=== PATIENT | female | born 1975 | race Two or more races ===

== ENCOUNTER 2018-07-07 21:34 | Emergency (ER) | payer BC ==
[2018-07-07] MEDS ORDERED: ONDANSETRON 4 MG TAB.RAPDIS PO ONE (23:17)
--- NOTE | 2018-07-07 23:18 | ER Document Report ---
ED Medical Screen (RME) - General Chief Complaint: Blood Pressure Problem Stated Complaint: DIZZY,HIGH BLOOD PRESSURE,NAUSEA Time Seen by Provider: 07/07/18 23:17 Mode of Arrival: Ambulatory Information source: Patient Notes: 43-year-old female presented to ED for complaining of dizziness nausea headache and upset stomach that started yesterday. She states this form morning she woke up and she still had a headache dizziness and upset stomach. She states she is still nauseated at this time. Vital signs are stable. Patient is alert and oriented respirations regular and unlabored speaking in full sentences and walking with a even steady gait. I have greeted and performed a rapid initial assessment of this patient. A comprehensive ED assessment and evaluation of the patient, analysis of test results and completion of medical decision making process will be conducted by an additional ED providers. TRAVEL OUTSIDE OF THE [place] IN LAST 30 DAYS: No Physical Exam - Vital signs Vitals: Temp Pulse Resp BP Pulse Ox 98.1 F 91 16 158/96 H 99 07/07/18 21:35 07/07/18 21:35 07/07/18 21:35 07/07/18 21:35 07/07/18 21:35 Course - Vital Signs Vital signs: Temp Pulse Resp BP Pulse Ox 98.1 F 91 16 158/96 H 99 07/07/18 21:35 07/07/18 21:35 07/07/18 21:35 07/07/18 21:35 07/07/18 21:35 Doctor's Discharge - Discharge Referrals: HUNTER BERMUDEZ MD [Primary Care Provider] - Follow up as needed
--- NOTE | 2018-07-07 23:31 | EKG REPORT ---
SEVERITY:- ABNORMAL ECG - SINUS RHYTHM : Confirmed by: Maday Vela MD 07-Jul-2018 23:30:55
[2018-07-08 00:50] LABS: ABSOLUTE LYMPHOCYTES (AUTO) 1.9 10^3/uL (0.5-4.7); ABSOLUTE MONOCYTES (AUTO) 0.3 10^3/uL (0.1-1.4); BASOPHILS % (AUTO) 0.2 % (0-2); EOSINOPHILS % (AUTO) 0.3 % (0-6); HEMATOCRIT 40.8 % (36.0-47.0); HEMOGLOBIN 13.7 g/dL (12.0-15.5); LYMPHOCYTES % (AUTO) 20.5 % (13-45); MEAN CORPUSCULAR HEMOGLOBIN 26.9 pg (27.0-33.4); MEAN CORPUSCULAR HGB CONC 33.6 g/dL (32.0-36.0); MEAN CORPUSCULAR VOLUME 80 fl (80-97); MONOCYTES % (AUTO) 3.2 % (3-13); PLATELET COUNT 343 10^3/uL (150-450); RED BLOOD COUNT 5.09 10^6/uL (3.72-5.28); RED CELL DISTRIBUTION WIDTH 13.3 % (11.5-14.0); SEGMENTED NEUTROPHILS % (AUTO) 75.8 % (42-78); TOTAL CELLS COUNTED % (AUTO) 100 %; WHITE BLOOD COUNT 9.3 10^3/uL (4.0-10.5)
[2018-07-08 00:55] LABS: APPEARANCE,URINE CLEAR; BILIRUBIN,URINE NEGATIVE (NEGATIVE); COLOR,URINE YELLOW; GLUCOSE, URINE NEGATIVE (NEGATIVE); KETONES,URINE NEGATIVE (NEGATIVE); LEUKOCYTE ESTERASE,URINE NEGATIVE (NEGATIVE); NITRITE,URINE NEGATIVE (NEGATIVE); PROTEIN,URINE NEGATIVE (NEGATIVE); URINE SPECIFIC GRAVITY 1.003; UROBILINOGEN,URINE NEGATIVE mg/dL (<2.0)
[2018-07-08 01:22] LABS: ALANINE AMINOTRANSFERASE 48 U/L (9-52); ALBUMIN 4.6 g/dL (3.5-5.0); ALKALINE PHOSPHATASE 105 U/L (38-126); ANION GAP 10 (5-19); ASPARTATE AMINO TRANSFERASE 35 U/L (14-36); BILIRUBIN,DIRECT 0.4 mg/dL (0.0-0.4); BILIRUBIN,TOTAL 0.5 mg/dL (0.2-1.3); BLOOD UREA NITROGEN 9 mg/dL (7-20); CARBON DIOXIDE 28 mmol/L (22-30); CHLORIDE 104 mmol/L (98-107); GLUCOSE 105 mg/dL (75-110); POTASSIUM 3.9 mmol/L (3.6-5.0); SODIUM 142.3 mmol/L (137-145); TOTAL PROTEIN 8.7 g/dL (6.3-8.2)
[2018-07-08] MEDS ORDERED: MECLIZINE HCL 25 MG TABLET PO ONE (02:37)
--- NOTE | 2018-07-08 03:11 | ER Document Report ---
ED General - General Chief Complaint: Blood Pressure Problem Stated Complaint: DIZZY,HIGH BLOOD PRESSURE,NAUSEA Time Seen by Provider: 07/07/18 23:17 Mode of Arrival: Ambulatory Notes: 43-year-old female presented to ED for complaining of dizziness nausea headache and upset stomach that started yesterday. She states this form morning she woke up and she still had a headache dizziness and upset stomach. She states she is still nauseated at this time. Vital signs are stable. Patient is alert and oriented respirations regular and unlabored speaking in full sentences and walking with a even steady gait. TRAVEL OUTSIDE OF THE [place] IN LAST 30 DAYS: No - Related Data Allergies/Adverse Reactions: aspirin Allergy (Verified 07/08/18 00:04) Penicillins Allergy (Verified 07/08/18 00:04) Past Medical History - General Information source: Patient - Social History Smoking Status: Never Smoker Chew tobacco use (# tins/day): No Frequency of alcohol use: None Drug Abuse: None Lives with: Family Family History: Reviewed & Not Pertinent Patient has suicidal ideation: No Patient has homicidal ideation: No Renal/ Medical History: Denies: Hx Peritoneal Dialysis GI Medical History: Reports: Hx Gastroesophageal Reflux Disease Past Surgical History: Reports: Hx Section Review of Systems - Review of Systems Constitutional: See HPI EENT: See HPI Cardiovascular: No symptoms reported Respiratory: No symptoms reported Gastrointestinal: No symptoms reported Genitourinary: No symptoms reported Female Genitourinary: No symptoms reported Musculoskeletal: No symptoms reported Skin: No symptoms reported Hematologic/Lymphatic: No symptoms reported Neurological/Psychological: See HPI Physical Exam - Vital signs Vitals: Temp Pulse Resp BP Pulse Ox 98.1 F 91 16 158/96 H 99 07/07/18 21:35 07/07/18 21:35 07/07/18 21:35 07/07/18 21:35 07/07/18 21:35 - Notes Notes: GENERAL: Alert, interacts well. No acute distress. HEAD: Normocephalic, atraumatic. EYES: Pupils equal, round, and reactive to light. Extraocular movements intact. ENT: Oral mucosa moist, tongue midline. [Nares patent, no nasal septal hematoma , TM's intact.] NECK: Full range of motion. Supple. Trachea midline. LUNGS: Clear to auscultation bilaterally, no wheezes, rales, or rhonchi. No respiratory distress. HEART: Regular rate and rhythm. No murmur ABDOMEN: Soft, non-tender. Non-distended. Bowel sounds present in all 4 quadrants. EXTREMITIES: Moves all 4 extremities spontaneously. No edema, normal radial and dorsalis pedis pulses bilaterally. No cyanosis. BACK: no cervical, thoracic, lumbar midline tenderness. No saddle anesthesia, normal distal neurovascular exam. NEUROLOGICAL: Alert and oriented x3. Normal speech. [cranial nerves II through XII grossly intact]. PSYCH: Normal affect, normal mood. SKIN: Warm, dry, normal turgor. No rashes or lesions noted. Course - Re-evaluation Re-evalutation: Patient with sinus congestion, nystagmus, and symptoms consistent vertigo. No neurological deficits. Laboratory workup from triage reviewed and unremarkable. Vital signs unremarkable. EKG sinus rhythm, does show PVC, normal OR interval and QTc. Electrodes unremarkable. Patient does not have lightheadedness, syncope, she specifically has spinning sensation and nausea. She denies palpitations. I do have low suspicion of intracranial hemorrhage, stroke based on patient's neurological exam and specific symptoms of spinning sensation when she gets up and when she lies back and closes her eyes. I discussed this with patient. Discussed treatment for this, discussed follow-up and return precautions. Patient states understanding and agreement. - Vital Signs Vital signs: Temp Pulse Resp BP Pulse Ox 97.9 F 73 17 133/93 H 100 07/08/18 03:59 07/08/18 03:59 07/08/18 03:59 07/08/18 03:59 07/08/18 03:59 - Laboratory Result Diagrams: 07/08/18 00:20 07/08/18 00:20 Laboratory results interpreted by me: 07/08/18 07/08/18 00:20 00:20 MCH 26.9 L Total Protein 8.7 H Discharge - Discharge Clinical Impression: Vertigo, Sinus congestion, Nausea Condition: Stable Disposition: HOME, SELF-CARE Additional Instructions: Your examination is consistent with labyrinthitis and sinus congestion. This is an abnormality with the inner ear. This should resolve with time. Take the meclizine as prescribed, take the Zofran if needed for nausea, use the nasal spray to reduce sinus congestion. Follow-up with primary care. Return for any concerning worsening symptoms including vomiting, fever, severe headache, or any other concerning or worsening symptoms. Prescriptions: Fluticasone Propionate [Flonase Nasal [place] 50 Mcg/[place] 16 gm] 2 sprays NASL Q12 #1 inhaler Meclizine HCl [Bonine] 25 mg PO TID #24 tab.chew Ondansetron [Zofran Odt 4 mg Tablet] 1 - 2 tab PO Q4H PRN #15 tab.rapdis PRN Reason: For Nausea/Vomiting Referrals: HUNTER BERMUDEZ MD [ACTIVE STAFF] - Follow up as needed
[2018-07-08 04:00] VITALS: BP 133/93
== END 2018-07-08 04:00 | disposition home or self-care (01) ==
LOC: ER 21:34
DX: R42 Dizziness and giddiness (principal); R11.0 Nausea; R09.81 Nasal congestion; Z88.6 Allergy status to analgesic agent; Z88.0 Allergy status to penicillin
CPT/HCPCS: 93005; 99284; 36415; 85025; 81025; 80053; 81001; 93010; S0119